=== PATIENT | male | born 1960 | race Caucasian/White ===

== ENCOUNTER 2018-07-21 10:37 | Emergency (ER) | payer OTHER ==
[~2018-07-21] VITALS: Ht 182.9 cm; Wt 108.2 kg
[2018-07-21] MEDS ORDERED: LIDOCAINE-MPF 1%, 2ML ONE ×2 (11:25→11:33)
[2018-07-21] MEDS ORDERED: SODIUM CHLORIDE 0.9% IV SCH (11:30)
[2018-07-21] MEDS ORDERED: PSEUDOEPHEDRINE 30 MG TABLET PO PRN (11:30)
[2018-07-21] MEDS ORDERED: LIDOCAINE 1%, 2ML INFIL ONE (11:30)
[2018-07-21] MEDS ORDERED: PHENYLEPHRINE IV SCH (11:30)
[2018-07-21] MEDS ORDERED: LIDOCAINE-MPF 1%, 5ML ONE (13:36)
[2018-07-21 14:54] VITALS: BP 140/79
== END 2018-07-21 15:30 | disposition left against medical advice (07) ==
LOC: ED 13:37
DX: N48.39 Other priapism (principal)
CPT/HCPCS: 54220; 99283; 99284